=== PATIENT | male | born 1980 | race Caucasian/White ===

== ENCOUNTER 2017-11-30 04:21 | Emergency (ER) | payer SELFPAY ==
[~2017-11-30] VITALS: Ht 160 cm; Wt 67.0 kg
[2017-11-30 08:04] VITALS: BP 115/64
== END 2017-11-30 08:08 | disposition home or self-care (01) ==
LOC: ER 04:21
DX: R07.9 Chest pain, unspecified (principal); R42 Dizziness and giddiness
CPT/HCPCS: 71045; 93005; 99284